=== PATIENT | male | born 1970 | race Caucasian/White ===

== ENCOUNTER 2017-11-26 15:55 | Emergency (ER) | payer OTHER ==
[~2017-11-26] VITALS: Ht 198.1 cm; Wt 140.6 kg
[~2017-11-26 15:55] MED LIST: Crutch1 EACH MISC; DELTASONE20 MG PO; DILT120 PO; DOXY100 PO; FURO40 PO; HYDRA50 PO; Metoprolol Tar100 MG PO; Nix Lice Treatm59 ML TOP; POTCHL20ER PO; Percocet 5-3251 EACH PO; RANI150 PO; Tambocor100 MG PO; WARF5 PO
[2017-11-26 17:05] LABS: International Normalized Ratio 2.5; Prothrombin Time Results 26.8 Sec (9.7-11.5)
== END 2017-11-26 17:15 | disposition home or self-care (01) ==
LOC: ER 15:55
PROVIDERS: Psychiatry & Neurology Psychiatry
DX: R04.0 Epistaxis (principal); R79.1 Abnormal coagulation profile; I10 Essential (primary) hypertension; I48.91 Unspecified atrial fibrillation; Z88.5 Allergy status to narcotic agent; Z79.899 Other long term (current) drug therapy; Z79.01 Long term (current) use of anticoagulants; Z87.891 Personal history of nicotine dependence
CPT/HCPCS: 85610; 99283

== ENCOUNTER 2017-11-26 21:01 | Emergency (ER) | payer OTHER ==
[~2017-11-26] VITALS: Ht 198.1 cm; Wt 140.6 kg
== END 2017-11-26 22:45 | disposition home or self-care (01) ==
LOC: ER 21:01
DX: R04.0 Epistaxis (principal); I10 Essential (primary) hypertension; I48.91 Unspecified atrial fibrillation; Z87.891 Personal history of nicotine dependence; Z88.5 Allergy status to narcotic agent; Z79.899 Other long term (current) drug therapy; Z79.01 Long term (current) use of anticoagulants
CPT/HCPCS: 30901; 99283

== ENCOUNTER → 2019-05-28 | Outpatient (CLI) | payer OTHER ==
[2019-05-28 15:51] LABS: Creatinine, Urine Random 56.8 mg/dL (27.00-270.00); Protein, Urine Random 6.5 mg/dL (0.0-11.9)
== END | disposition home or self-care (01) ==
LOC: LAB 14:46 → LAB SHORT 14:46
PROVIDERS: Internal Medicine
DX: N28.9 Disorder of kidney and ureter, unspecified (principal)
CPT/HCPCS: 82570; 84156

== ENCOUNTER 2022-12-20 16:30 | Emergency (ER) | payer OTHER ==
[~2022-12-20] VITALS: Ht 200.7 cm; Wt 140.6 kg
== END 2022-12-20 18:18 | disposition home or self-care (01) ==
LOC: ER 16:30
DX: R04.0 Epistaxis (principal); I10 Essential (primary) hypertension; Z88.5 Allergy status to narcotic agent; Z79.01 Long term (current) use of anticoagulants; Z79.899 Other long term (current) drug therapy; Z87.891 Personal history of nicotine dependence
CPT/HCPCS: 99283; A9270